=== PATIENT | male | born 1950 | race Caucasian/White ===

== ENCOUNTER 2018-07-25 14:18 | Outpatient (CLI) | payer MEDICARE, BC ==
[2018-07-25 15:39] LABS: #Eosinphils 0.1 thou/uL (0.0-0.7); #Lymphocytes 1.5 thou/uL (1.20-3.40); #Monocytes 0.5 thou/uL (0.11-0.59); #Neutrophils 2.5 thou/uL (1.40-6.50); %Basophils 0.6 % (0.0-1.0); %Eosinophils 2.7 % (0.0-10.0); %Lymphocytes 32.6 % (21.0-51.0); %Monocytes 10.6 % (0.0-10.0); %Neutrophils 53.5 % (42.0-75.0); Hemoglobin 14.4 g/dL (14.0-18.0); Mean Corpuscular HGB CONC 33.6 g/dL (32.0-36.0); Mean Corpuscular Hemoglobin 32.3 pg (27.0-31.0); Mean Corpuscular Volume 96.1 fL (78.0-98.0); Mean Platelet Volume 8.1 fL (7.4-10.4); Platelet Count 217 thou/uL (130-400); RBC Distribution Width 12.7 % (11.5-14.5); Red Blood Cell (RBC) Count 4.46 mill/uL (4.70-6.10); White Blood Cell (WBC) Count 4.6 thou/uL (4.8-10.8)
[2018-07-25 16:12] LABS: ALT (SGPT) 12 U/L (8-55); AST (SGOT) 18 U/L (5-34); Albumin 4.5 g/dL (3.4-4.8); Alkaline Phosphatase 65 U/L (40-150); Anion Gap 14 mmol/L (10-20); BUN (Urea Nitrogen) 14 mg/dL (8.4-25.7); Bilirubin, Total 0.4 mg/dL (0.2-1.2); Calc. Creatinine Clearance 0 mL/min (70-130); Calcium 9.8 mg/dL (7.8-10.44); Carbon Dioxide 25 mmol/L (23-31); Chloride 106 mmol/L (98-107); Estimated GFR-MDRD 71; Globulin 2.5 g/dL (2.4-3.5); Glucose 98 mg/dL (80-115); Potassium 4.7 mmol/L (3.5-5.1); Sodium 140 mmol/L (136-145)
== END 2018-07-25 14:19 | disposition home or self-care (01) ==
LOC: LABBT 14:18
PROVIDERS: ATTEND Surgery
DX: Z01.818 Encounter for other preprocedural examination (principal); K40.90 Unilateral inguinal hernia, without obstruction or gangrene, not specified as recurrent; Q53.9 Undescended testicle, unspecified; N40.0 Benign prostatic hyperplasia without lower urinary tract symptoms
CPT/HCPCS: 80053; 84153; 85025; 93005; 93010

== ENCOUNTER 2018-07-30 11:23 | Day surgery (SDC) | payer MEDICARE, BC ==
[2018-07-25 14:40] VITALS: BMI 23.1
[2018-07-30] MEDS ORDERED: Midazolam HCl 2 mg/2 ml Vial ONE (12:42)
[2018-07-30] MEDS ORDERED: CEFAZOLIN 2 GM/50 ML BAG ONE (12:42)
[2018-07-30] MEDS ORDERED: Bupivacaine/Epinephrine 0.25% 30 ML VIAL ONE (13:10)
[2018-07-30] MEDS ORDERED: Fentanyl 100 MCG/2 ML VIAL ONE ×2 (13:11→14:45)
--- NOTE | 2018-07-30 15:17 | OP ---
DATE OF PROCEDURE: 07/30/2018 PREOPERATIVE DIAGNOSIS: Left inguinal hernia with undescended testicle. PROCEDURES PERFORMED: Left orchiectomy, left inguinal hernia repair with mesh. INDICATIONS: This is a 68-year-old male, who has a known undescended testicle since . He developed a large bulge in his left groin. Per Urology, best to remove that testicle. FINDINGS: Large direct inguinal hernia, left testicle. DESCRIPTION OF PROCEDURE: After informed consent was obtained, the patient was taken to the operating room, given general endotracheal anesthesia, placed in supine position. Left groin was prepped and draped in the usual fashion. Local anesthesia infiltrated subcutaneously and deep. A transverse left inguinal incision was performed, subcu divided sharply. The fascia of the external oblique was incised in direction of its fibers through the external ring. The testicle was just underneath the external oblique fascia. External oblique fascia had been opened in the direction of its fibers. The testicle was dissected out including the spermatic cord. The spermatic cord was divided between clamps and tied with 0 silk suture. Then, this was sent to pathology for further analysis. The direct hernia sac was circumscribed, reduced and the PHS hernia system, posteriorly was placed in the preperitoneal space, anterior was laid out, sutured to the pubic tubercle medially, tucked under the external oblique fascia laterally. Due to the large size of this defect, also tacked it laterally to the inguinal ligament with interrupted 2-0 Prolene suture. Then, the external oblique fascia was closed over the mesh with a running 3-0 Vicryl. Arianna was closed with interrupted 3-0 Vicryl and the skin was closed with a running subcuticular 4-0 Rapide. Steri-Strips applied. Sterile bandage applied. The patient tolerated the procedure well and transferred to Recovery in good condition. Sponge and needle count verified and correct x2. Job ID: [id number]
[2018-07-30] MEDS ORDERED: Ondansetron PF 4 MG/2 ML Vial ONE (21:27)
[2018-07-30] MEDS ORDERED: Lidocaine 1% PF 5 ML VIAL ONE (21:27)
[2018-07-30] MEDS ORDERED: Ketorolac Tromethamine 30 MG/ML VIAL ONE (21:27)
[2018-07-30] MEDS ORDERED: ePHEDrine/0.9% NaCl/PF SYRINGE 50 mg/10 ml ONE (21:27)
[2018-07-30] MEDS ORDERED: Dexamethasone 20 MG/5 ML VIAL ONE (21:27)
[2018-07-30] MEDS ORDERED: PROPOFOL 200 MG/20 ML VIAL ONE (21:27)
== END 2018-07-30 16:50 | disposition home or self-care (01) ==
LOC: SDC 11:23 → EEVIPCON 15:00 → SDC 16:50
PROVIDERS: ATTEND Surgery
PROC: 0YU60JZ Supplement Left Inguinal Region with Synthetic Substitute, Open Approach (ICD-10-PCS; principal; 2018-07-30)
PROC: 0VTB0ZZ Resection of Left Testis, Open Approach (ICD-10-PCS; 2018-07-30)
DX: K40.90 Unilateral inguinal hernia, without obstruction or gangrene, not specified as recurrent (principal); Q53.9 Undescended testicle, unspecified
CPT/HCPCS: 49505; 54520; 96374; C1781; 88305; J1100; J1885; J2001; J2250; J2405; J2704; J3010